=== PATIENT | female | born 1945 | race Caucasian/White ===

== ENCOUNTER → 2020-01-09 07:00 | Outpatient (CLI) | payer OTHER ==
[~2020-01-09] VITALS: Ht 157.5 cm; Wt 116.6 kg
[~2020-01-09 07:00] MED LIST: BAYER THERAPY325 MG PO; GABAPENTIN PO; GABAPENTIN100 M2 PO; GLIPIZIDE PO; GLIPIZIDE XL2.5 MG PO; GLUMETZA500 MG PO; LOSART PO; LOSARTAN POTASS50 MG PO
== END | disposition home or self-care (01) ==
LOC: EKG 07:00 → OB/GYN 01-10 05:59 → O/R 01-10 05:59 → CIR.AMB 01-10 06:00 → EDSTATUS 01-10 13:00 → OB/GYN 01-10 13:00 → CIR.AMB 01-30 13:00 → EDSTATUS 01-30 13:00
PROVIDERS: ATTEND Obstetrics & Gynecology Gynecologic Oncology
DX: C54.1 Malignant neoplasm of endometrium (principal); Z01.810 Encounter for preprocedural cardiovascular examination